=== PATIENT | female | born 1995 | race African-American/Black ===

== ENCOUNTER 2020-03-21 14:09 | Emergency (ER) | payer OTHER, MEDICAID | END 2020-03-21 15:12 | disposition left against medical advice (07) | LOC: ED 14:09 | DX: Z53.21 Procedure and treatment not carried out due to patient leaving prior to being seen by health care provider (principal) ==

== ENCOUNTER 2020-03-21 15:35 | Emergency (ER) | payer OTHER, MEDICAID ==
[~2020-03-21] VITALS: Ht 167.6 cm; Wt 57.2 kg
[2020-03-21 15:40] VITALS: BP 135/85; Ht 167.6 cm; Wt 57.2 kg
== END 2020-03-21 18:28 | disposition home or self-care (01) ==
LOC: ED 15:35
DX: S46.912A Strain of unspecified muscle, fascia and tendon at shoulder and upper arm level, left arm, initial encounter (principal); S46.911A Strain of unspecified muscle, fascia and tendon at shoulder and upper arm level, right arm, initial encounter; S20.212A Contusion of left front wall of thorax, initial encounter; V49.49XA Driver injured in collision with other motor vehicles in traffic accident, initial encounter; Y93.I9 Activity, other involving external motion; Y92.488 Other paved roadways as the place of occurrence of the external cause; Y99.8 Other external cause status